=== PATIENT | male | born 1960 | race Caucasian/White ===

== ENCOUNTER 2025-05-22 08:16 | Day surgery (SDC) | payer BC ==
[2025-05-22] MEDS: Lactated Ringers 1,000 ML IV SCH (09:00)
[2025-05-22] MEDS ORDERED: propofoL 500 MG/50 ML 50 ML ONE (09:16)
[2025-05-22] MEDS ORDERED: Ketamine HCL/NACL, ISO-OSM 50 MG/5 ML Syringe ONE (09:39)
[2025-05-22] MEDS ORDERED: Lactated Ringers 1,000 ML IV SCH (10:15)
[2025-05-22] MEDS ORDERED: Dexamethasone 4 MG/ML 5 ML MDV ONE (10:28)
[2025-05-22] MEDS ORDERED: Ondansetron 4 MG/2 ML SDV ONE (10:28)
[2025-05-22 13:08] VITALS: BP 122/71; PULSE 64
== END 2025-05-22 10:41 | disposition home or self-care (01) ==
LOC: MW.SDS 08:16
PROVIDERS: ATTEND Surgery
DX: Z12.11 Encounter for screening for malignant neoplasm of colon (principal); K57.30 Diverticulosis of large intestine without perforation or abscess without bleeding; E66.3 Overweight; E11.9 Type 2 diabetes mellitus without complications; I10 Essential (primary) hypertension; Z88.8 Allergy status to other drugs, medicaments and biological substances; Z68.28 Body mass index [BMI] 28.0-28.9, adult; Z79.899 Other long term (current) drug therapy
CPT/HCPCS: 45378; J2704; J7120; 00812; J1100; J2405; J3490